=== PATIENT | female | born 1955 | race Caucasian/White ===

== ENCOUNTER → 2017-06-16 | Outpatient (CLI) | payer BC | END | disposition home or self-care (01) | DX: M16.11 Unilateral primary osteoarthritis, right hip (principal); R26.2 Difficulty in walking, not elsewhere classified; M25.551 Pain in right hip; M25.651 Stiffness of right hip, not elsewhere classified; M62.81 Muscle weakness (generalized); Z74.1 Need for assistance with personal care | CPT/HCPCS: 97110 GP; 97150 GO; 97161 GP; 97165 GO ==

== ENCOUNTER 2017-07-05 23:43 | Inpatient (IN) | payer BC ==
[~2017-07-05] VITALS: Ht 152.4 cm; Wt 90.4 kg
[~2017-07-05 23:43] MED LIST: IRON325 M1 PO; LISINOPRIL10 MG PO; NABUMETONE750 MG PO
[2017-07-06 07:21] VITALS: BP 155/72
[2017-07-06 16:07] LABS: HEMATOCRIT 38.1 % (36.0-46.0); MCH 33.8 PG (29.0-34.0); MCHC 33.9 G/DL (30.0-36.0); MCV 99.7 FL (83-99); MEAN PLAT.VOLUME 10.2 uM^3 (9.5-12.4); PLATELET COUNT 201 K/uL (156-360); RBC DIS.WIDTH-CV 12.1 % (11.8-14.6); RBC DIS.WIDTH-SD 44.5 % (39-53); RED BLOOD COUNT 3.82 M/uL (3.80-5.20); WHITE BLOOD COUNT 14.1 K/uL (4.1-10.2)
[2017-07-06 16:23] VITALS: BP 101/56
[2017-07-06 19:34] VITALS: BP 105/56
[2017-07-06 23:57] VITALS: BP 93/50
[2017-07-07 04:22] VITALS: BP 88/56
[2017-07-07 06:11] VITALS: BP 90/53
[2017-07-07 07:05] LABS: HEMATOCRIT 35.1 % (36.0-46.0); MCV 98.6 FL (83-99)
[2017-07-07 07:28] LABS: ANION GAP 3 MEQ/L (2-14); CHLORIDE 104 MEQ/L (99-109); GFR ESTIMATE (CALCULATED) > 59 mL/min/; GLUCOSE 117 mg/dL (70-99); POTASSIUM 4.5 MEQ/L (3.7-5.4); SAMPLE HEMOLYSIS CHECK 0; SAMPLE ICTERIC CHECK 0; SAMPLE LIPEMIA CHECK 0; SODIUM 135 MEQ/L (136-147); UREA NITROGEN (BUN) 11 mg/dL (9-23)
[2017-07-07 08:21] VITALS: BP 101/50
[2017-07-07 12:06] VITALS: BP 107/58
[2017-07-07 15:59] VITALS: BP 106/51
[2017-07-07 20:14] VITALS: BP 110/56
[2017-07-08 00:06] VITALS: BP 110/58
[2017-07-08 04:22] VITALS: BP 112/56
[2017-07-08 06:03] LABS: HEMATOCRIT 32.3 % (36.0-46.0); MCV 98.2 FL (83-99)
[2017-07-08 08:05] VITALS: BP 119/59
[2017-07-08] MEDS ORDERED: DOCUSATE SODIU100 MG PO (09:06)
[2017-07-08] MEDS ORDERED: LOVENOX40 MG/0.4 SC (09:06)
[2017-07-08] MEDS ORDERED: CELECOXIB200 MG PO (09:06)
[2017-07-08] MEDS ORDERED: ENDOCET 5-3251 EACH PO (09:06)
[2017-07-08 12:21] VITALS: BP 122/66
[2017-07-08 15:52] VITALS: BP 102/53
== END 2017-07-08 16:07 | disposition home health service (06) | DRG 470 ==
LOC: ENRESERV 23:43 → 2SOUTH 07-06 06:47 → 3WEST 07-06 06:47 → 2SOUTH 07-06 09:03 → 3WEST 07-06 16:01
PROVIDERS: Orthopaedic Surgery; Physician Assistant
PROC: 0SR902Z Replacement of Right Hip Joint with Metal on Polyethylene Synthetic Substitute, Open Approach (ICD-10-PCS; principal; 2017-07-06)
DX: M16.11 Unilateral primary osteoarthritis, right hip (principal); I10 Essential (primary) hypertension; Z68.39 Body mass index [BMI] 39.0-39.9, adult; Z90.49 Acquired absence of other specified parts of digestive tract
CPT/HCPCS: 72170; 73501; 80048; 85014; 85018; 85027; 97530 GO; J0690; J1170; J1650; J1885; J2250; J2370; J2405; J3010; J7030; J7050